=== PATIENT | female | born 1965 | race Two or more races ===

== ENCOUNTER 2023-11-15 07:57 | Emergency (ER) | payer BC, SELFPAY ==
[2023-11-15 08:05] VITALS: BP 118/71; PULSE 83; RESP 20; TEMP 36.6; O2SAT 98; BMI 23.6
--- NOTE | 2023-11-15 08:15 | PC.NURSE ---
DR DOLL AT BEDSIDE
--- NOTE | 2023-11-15 08:16 | CT_ITS ---
FINAL REPORT TECHNIQUE: After the administration of intravenous contrast, axial images through the chest were performed by computed tomography.This study was performed with techniques to keep radiation doses as low as reasonably achievable, (ALARA). Individualized dose reduction techniques using automated exposure control or adjustment of mA and/or kV according to the patient''s size were employed. CLINICAL HISTORY: horse injury - compressed against wall -pain FINDINGS: There is no axillary adenopathy. There is no hilar or mediastinal adenopathy. The heart size is normal. There is no pericardial or pleural effusion. There is no evidence of mediastinal hemorrhage or acute aortic injury. No rib fracture identified. No suspicious infiltrate or nodule identified. IMPRESSION: No evidence of mediastinal hemorrhage or acute aortic injury. Reviewed, Interpreted and Dictated by Marin Teran MD Transcribed by Kinga Stanford Authenticated and [facility]
--- NOTE | 2023-11-15 08:16 | CT_ITS ---
FINAL REPORT TECHNIQUE: After the administration of intravenous contrast, axial images were obtained through the abdomen and pelvis by computed tomography. The study was performed with techniques to keep radiation dose as low as reasonably achievable, (ALARA). Individual dose reduction techniques using automated exposure control or adjustment of mA and/or kV according to the patient's size were employed. CLINICAL HISTORY: horse injury - compressed against wall -pain FINDINGS: Abdomen: There are small bilateral renal cysts. Patient is status post cholecystectomy. The remaining solid abdominal organs are unremarkable. No bowel obstruction is present. There is no free air. No fluid collection is seen. There is no adenopathy. Pelvis: The appendix is normal. There is moderate sigmoid diverticulosis. The uterus and ovaries are normal. There is no free fluid. No pelvic mass is seen. IMPRESSION: No evidence of hemoperitoneum or solid organ injury. Reviewed, Interpreted and Dictated by Marin Teran MD Transcribed by Kinga Stanford Authenticated and [facility]
--- NOTE | 2023-11-15 08:18 | HMH.EDGENADL ---
Discharge Plan Disposition Patient Disposition: Home, Self-Care Referrals Follow up/Referrals: Provider,Referral, [Primary Care Provider] - See instructions Activity Restrictions/Add. Instructions Additional Instructions/Restrictions: No evidence on your CAT scans of any significant injury specifically to your liver. However as we discussed there are some very mild elevations in your liver transaminases which could be from a mild injury or some secondary cause that was incidentally found. No emergent intervention is needed please follow-up with your primary care doctor to ensure resolution or further workup of these abnormalities. You may take Tylenol and ibuprofen as needed for discomfort that you are feeling. Clinical Impressions Clinical Impression: Contusion of right chest wall, Right sided abdominal pain, Abnormal transaminases Discharge ED Provider: Mannie Judge General Adult HPI General Chief complaint: PAIN Stated complaint: AO-Pain in R chest and back-11/15/23 Time Seen by Provider: 11/15/23 08:09 Mode of Arrival: Ambulatory Source of Information: Patient Limitations: No Limitations Description of Symptoms (Recalled from ER Triage Doc. by RN): pt to ed c/o right sided chest wall pain that radiates through her shoulder. pt states she got pinned against a stall door by a horse. pt reports pain with deep inspiration. pt denies SOA. History of Present Illness HPI narrative: Patient is a 58-year-old female presenting today with right lateral chest and abdomen pain. 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 Denies any head or neck injuries. Denies any extremity injuries. She is not on any anticoagulants only has taken Advil today not on other medications. Related Data Allergies Allergy/AdvReac Type Severity Reaction Status Date / Time No Known Allergies Allergy Verified 11/15/23 08:09 [facility] Disclaimer: The information contained in this section may have been updated after the patient was seen, as this information can be updated by other users. Social History Smoking Status: Never smoker alcohol intake: never current occupational status: other Travel in the last 8 weeks: None ROS Obtained: Yes All systems reviewed & no additional complaints except as documented Physical Exam General General appearance: alert and in no apparent distress Head Head exam: atraumatic Neck Neck exam: Absent tenderness Chest Chest inspection: Present normal inspection and tenderness (Right lateral chest wall tenderness) Respiratory Respiratory exam: Present normal lung sounds bilaterally; Absent respiratory distress Cardiovascular Cardiovascular exam: Present regular rate and normal rhythm Abdominal Exam Abdominal exam: Present soft and tenderness (Right upper quadrant tenderness) Neurological Exam Neurological exam: Present alert and oriented X3 Medical Decision Making Manjit Inquiry Pt receiving controlled substance: No Vital Signs: 11/15/23 08:05 11/15/23 08:35 11/15/23 09:00 Temperature 97.8 F Temperature Source Oral Pulse Rate 84 81 Pulse Rate [Left Radial] 83 Respiratory Rate 20 Blood Pressure 127/79 140/73 Blood Pressure [Right Arm] 118/71 Blood Pressure Mean [Right Arm] 86 02 Sat by Pulse Oximetry 98 97 93 L Oxygen Delivery Method Room Air Room Air 11/15/23 09:30 Temperature Temperature Source Pulse Rate 70 Pulse Rate [Left Radial] Respiratory Rate Blood Pressure 129/74 Blood Pressure [Right Arm] Blood Pressure Mean [Right Arm] 02 Sat by Pulse Oximetry 95 Oxygen Delivery Method Lab Data Lab results reviewed: Yes I reviewed the patient's lab results. Lab Results 11/15/23 08:15: WBC 6.9, RBC 4.59, Hgb 14.5, Hct 42.7, MCV 93.1, MCH 31.6 H, MCHC 34.0, RDW 13.7, Plt Count 295, MPV 8.1, Neut % (Auto) 74.2, Lymph % (Auto) 19.0, [place] % (Auto) 3.0, Eos % (Auto) 2.9, Baso % (Auto) 0.8, Neut # (Auto) 5.1, Lymph # (Auto) 1.3, [place] # (Auto) 0.2, Eos # (Auto) 0.2, Baso # (Auto) 0.1, Sodium 140, Potassium 4.0, Chloride 108 H, Carbon Dioxide 22, Anion Gap 14.0, BUN 13, Creatinine 0.50 L, Estimated Creat Clear 112, Estimated GFR 128, Est GFR ( Amer) 154, Glucose 162 H, Calcium 9.3, Total Bilirubin 0.3, AST 60 H, ALT 84 H, Alkaline Phosphatase 129 H, Total Protein 7.8, Albumin 4.3, Globulin 3.5 H, Albumin/Globulin Ratio 1.2, Lipase 100 11/15/23 08:34: Urine Color Yellow, Urine Appearance Clear, Urine pH 6.0, Ur Specific [place] 1.025, Urine Protein Negative, Urine Glucose (UA) Negative, Urine Ketones Negative, Urine Blood Negative, Urine Nitrate Negative, Urine Bilirubin Negative, Urine Urobilinogen 0.2, Ur Leukocyte Esterase 1+ A, Urine RBC None, Urine WBC Occasional, Ur Squamous Epith Cells Occasional, Urine Bacteria Trace 11/15/23 08:15 11/15/23 08:15 Orders (Tests/Meds): ED MEDICATIONS Discontinued Medications Generic Name Dose Route Start Last Admin Trade Name Vivi PRN Reason Stop Dose Admin Lactated Ringer's 1,000 mls @ 999 mls/hr 11/15/23 08:30 11/15/23 08:27 Lactated Ringer's 1000 Ml Bag IV 11/15/23 09:30 999 mls/hr .Q1H1M AZEB Administration Iopamidol 75 ml 11/15/23 09:25 11/15/23 09:26 Iopamidol-370 (76%);100ml Bottle IV 11/15/23 09:26 75 ml ONCE ONE Administration Morphine Sulfate 4 mg 11/15/23 08:16 11/15/23 08:27 Morphine 4mg/Ml Syringe IV 11/15/23 08:17 4 mg ONCE ONE Administration Ondansetron HCl 4 mg 11/15/23 08:16 11/15/23 08:27 Ondansetron 4mg/2ml Vial IV 11/15/23 08:17 4 mg ONCE ONE Administration Sodium Chloride 10 ml 11/15/23 09:25 11/15/23 09:26 Sodium Chloride 0.9% 10ml Syr (Rad Only) IV 11/15/23 09:26 10 ml ONCE ONE Administration ORDERS Category Date Time Status CT abdomen pelvis w con Stat Cat Scan 11/15/23 08:[address] chest w con Stat Cat Scan 11/15/23 08:16 Completed CBC w/Auto Diff [Complete Blood Count Auto Diff] Stat Lab 11/15/23 08:15 Completed CMP [Comprehensive Metabolic Panel] Stat Lab 11/15/23 08:15 Completed Lipase Stat Lab 11/15/23 08:15 Completed UA [Urinalysis and Microscopic] Stat Lab 11/15/23 08:34 Completed Urine Culture Stat Micro 11/15/23 08:34 Received Medical Decision Narrative: 58-year-old female presents today with right lateral and right upper quadrant abdominal pain after a compression injury associated with the worst. Differential includes rib fractures, pneumothorax, hemothorax, pulmonary contusion, hepatobiliary injury etc. Will get a CT scan of the chest abdomen pelvis for further evaluation in addition to labs. IV fluids pain medicine nausea medicine will be administered and reassessment will be performed after that. Reassessment 10:[address] scans performed which I first interpreted also reviewed radiology images and read and no definitive traumatic abnormalities found specifically no evidence of any right upper quadrant or right-sided chest wall abnormalities or rib fractures. Of note patient does have very mild elevations in transaminases which are nonspecific. This could be incidental and from some secondary cause or could be a mild hepatocellular injury from blunt trauma. However there is no evidence of radiographic evidence of injury or other evidence of retroperitoneal injury. Given the fact that there is no radiographic evidence of liver injury and her exam is largely benign at this point on reassessment I think she is safe for outpatient follow-up. She has been made aware of these findings and will follow-up closely with her primary care doctor or return with any significant worsening. Of note patient does have an abnormal urine but she has no symptoms of a urinary tract infection will not treat this. Likely contaminant. Critical Care Critical Care Time Critical Care Time: No
[2023-11-15] MEDS: ONDANSETRON 4MG/2ML VIAL 4 MG IV (08:27)
[2023-11-15] MEDS: LACTATED RINGERS 1000ML 1,000 ML 999 ML IV (08:27)
[2023-11-15] MEDS: MORPHINE 4MG/ML SYRINGE 4 MG IV (08:27)
[2023-11-15 08:34] LABS: Basophils # 0.1 K/mm3 (0-0.2); Basophils % 0.8 % (0.1-2.0); Eosinophils # 0.2 K/mm3 (0.0-0.4); Eosinophils % 2.9 % (0.1-12.0); Hematocrit 42.7 % (37.0-47.0); Hemoglobin 14.5 g/dL (12.2-16.2); Lymphocytes # 1.3 K/mm3 (0.7-4.5); Mean Corpuscular Hemoglobin 31.6 pg (27.0-31.2); Mean Corpuscular Volume 93.1 fl (81-99); Mean Platelet Volume 8.1 fl (7.4-10.4); Monocytes # 0.2 K/mm3 (0.1-1.0); Neutrophils # 5.1 K/mm3 (1.8-7.8); Neutrophils % 74.2 % (37.0-80.0); Platelet Count 295 K/mm3 (142-424); Red Blood Count 4.59 M/mm3 (4.20-5.40); Red Cell Distribution Width 13.7 % (11.5-17.5); White Blood Count 6.9 K/mm3 (4.8-10.8)
[2023-11-15 08:35] VITALS: BP 127/79; PULSE 84; O2SAT 97
[2023-11-15 08:35] LABS: Chloride 108 mmol/L (98-107); Sodium 140 mmol/L (136-145)
[2023-11-15 08:36] LABS: Microscopic, Urine URINE MICROSCOPIC (MICROSCOPIC)
[2023-11-15 08:38] LABS: Alanine Aminotransferase 84 U/L (12-78); Albumin Level 4.3 g/dl (3.5-5.0); Albumin/Globulin Ratio 1.2 (1.1-1.8); Alkaline Phosphatase 129 U/L (38-126); Aspartate Amino Transferase 60 U/L (14-36); Bilirubin,Total 0.3 mg/dl (0.2-1.3); Blood Urea Nitrogen 13 mg/dl (7-17); Calcium 9.3 mg/dl (8.4-10.2); Carbon Dioxide 22 mmol/L (22.0-30.0); Creatinine Clearance Estimated 112 mL/min (50-200); Estimated Glomerular Filt Rate 128 ml/min (>60); GFR (African American) 154 ML/MIN (>60); Globulin 3.5 g/dL (1.3-3.2); Glucose 162 mg/dl (74-100); Lipase 100 U/L (23-300); Total Protein,Serum 7.8 g/dl (6.3-8.2)
[2023-11-15 08:39] LABS: Appearance,Urine CLEAR (Clear); Bilirubin,Urine Negative (Negative); Blood, Urine Negative (Negative); Color,Urine YELLOW (Yellow); Glucose,Urine (UA) Negative (Negative); Ketones,Urine Negative (Negative); Leukocyte Esterase,Urine 1+ (Negative); Nitrate,Urine Negative (Negative); Protein,Urine Negative (Negative); Specific Gravity, Urine 1.025 (1.005-1.030); Urobilinogen,Urine 0.2 EU/dl (0.2)
[2023-11-15 08:59] LABS: Bacteria,Urine Trace /lpf; Squamous Epithelial Cell,Urine Occasional #/hpf (0-5); WBC,Urine Occasional #/hpf (0-3)
[2023-11-15 09:00] VITALS: BP 140/73; PULSE 81; O2SAT 93
--- NOTE | 2023-11-15 09:23 | PC.NURSE ---
RETURNED FROM CT
--- NOTE | 2023-11-15 09:23 | PC.NURSE ---
Pt returned to room from RAD
[2023-11-15] MEDS: SODIUM CHLORIDE 0.9% 10ML SYR (RAD ONLY) 10 ML IV (09:26)
[2023-11-15] MEDS: IOPAMIDOL-370 (76%);100ML BOTTLE 75 ML IV (09:26)
[2023-11-15 09:30] VITALS: BP 129/74; PULSE 70; O2SAT 95
[2023-11-15 10:41] VITALS: BP 140/87; PULSE 75; RESP 20; TEMP 36.8; O2SAT 94
--- NOTE | 2023-11-18 05:44 | PC.NURSE ---
final urine culture result no growth
== END 2023-11-15 10:48 | disposition home or self-care (01) ==
PROVIDERS: Emergency Provider Student in an Organized Health Care Education/Training Program
DX: R07.1 Chest pain on breathing (principal); R10.11 Right upper quadrant pain; R10.31 Right lower quadrant pain; S20.211A Contusion of right front wall of thorax, initial encounter; R74.01 Elevation of levels of liver transaminase levels; W55.19XA Other contact with horse, initial encounter
CPT/HCPCS: 71260; 74177; 80053; 81001; 83690; 85025; 87086; 96361; 96374; 96375; 99285; J2270; J2405; J7120; Q9967